=== PATIENT | male | born 1945 | race Caucasian/White ===

== ENCOUNTER → 2016-08-15 | Outpatient (CLI) | payer OTHER, MEDICARE ==
[~2016-08-15] MED LIST: AMLO-110 PO; ASPI81TA28 PO; EMPA1TAB3 PO; FINA5TAB PO; LISI40TA PO; METF1TAB53 PO; SITA100T3 PO
[2016-08-15 09:42] LABS: HEMATOCRIT 44.9 % (42-52); MEAN CELL VOLUME 82.5 fL (80-100); MEAN CORPUSCULAR HEMOGLOBIN 28.1 pg (25-34); MEAN CORPUSCULAR HGB CONC 34.1 g/dl (32-36); MEAN PLATELET VOLUME 11.3 fL (7.4-10.4); PLATELET COUNT 145 K/uL (130-400); RED BLOOD COUNT 5.44 M/uL (4.7-6.1); WHITE BLOOD COUNT 9.73 K/uL (4.8-10.8)
[2016-08-15 09:58] LABS: BLOOD UREA NITROGEN 15 mg/dl (7-18); BUN/CREATININE RATIO 13.8 (10-20); CALCIUM 8.6 mg/dl (8.5-10.1); CARBON DIOXIDE 23 mmol/L (21-32); CHLORIDE 108 mmol/L (98-107); GLUCOSE 181 mg/dl (70-99); HDL CHOLESTEROL 40 mg/dl; POTASSIUM 4.1 mmol/L (3.5-5.1); SODIUM 141 mmol/L (136-145)
[2016-08-15 10:02] LABS: ALB/GLOB RATIO 1.2 (0.9-2); ALKALINE PHOSPHATASE 86 U/L (45-117); ALT/SGPT 29 U/L (12-78); AST/SGOT 15 U/L (15-37); CHOLESTEROL 106 mg/dl (0-200); CHOLESTEROL/HDL RATIO 2.7; LDL CHOLESTEROL CALCULATED 38 mg/dl; TRIGLYCERIDES 142 mg/dl (0-150); VERY LOW DENSITY LIPOPROT CALC 28 mg/dl
[2016-08-15 10:07] LABS: ESTIMATED AVERAGE GLUCOSE 186 mg/dl; HA1C FLAG Normal (Normal)
== END | disposition home or self-care (01) ==
LOC: C.LAB 08:25
PROVIDERS: ATTEND Family Medicine
DX: E11.9 Type 2 diabetes mellitus without complications (principal); N40.1 Benign prostatic hyperplasia with lower urinary tract symptoms

== ENCOUNTER → 2016-09-21 | Outpatient (CLI) | payer OTHER, MEDICARE | END | disposition home or self-care (01) | LOC: C.LABSPEC 16:52 | PROVIDERS: ATTEND Podiatrist Foot & Ankle Surgery | DX: L97.509 Non-pressure chronic ulcer of other part of unspecified foot with unspecified severity (principal) ==

== ENCOUNTER → 2016-12-17 | Outpatient (CLI) | payer OTHER, MEDICARE ==
[2016-12-17 17:15] LABS: BASO % 0.2 %; BASO ABS # 0.03 K/uL (0-0.2); COMPLETE YES; EOS % 1.3 %; HEMATOCRIT 46.3 % (42-52); IG% 0.4 %; LYMPH % 11.6 %; MEAN CELL VOLUME 83.3 fL (80-100); MEAN CORPUSCULAR HEMOGLOBIN 28.6 pg (25-34); MEAN CORPUSCULAR HGB CONC 34.3 g/dl (32-36); MEAN PLATELET VOLUME 11.2 fL (7.4-10.4); MONO % 12.3 %; NEUT % 74.2 %; PLATELET COUNT 141 K/uL (130-400); RED BLOOD COUNT 5.56 M/uL (4.7-6.1); WHITE BLOOD COUNT 12.03 K/uL (4.8-10.8)
[2016-12-17 17:42] LABS: ALT/SGPT 29 U/L (12-78); AST/SGOT 15 U/L (15-37); BLOOD UREA NITROGEN 19 mg/dl (7-18); BUN/CREATININE RATIO 17.3 (10-20); CALCIUM 8.7 mg/dl (8.5-10.1); CARBON DIOXIDE 22 mmol/L (21-32); CHLORIDE 109 mmol/L (98-107); GLUCOSE 140 mg/dl (70-99); POTASSIUM 3.7 mmol/L (3.5-5.1); SODIUM 142 mmol/L (136-145); URIC ACID 6.9 mg/dl (2.6-7.2)
[2016-12-17 17:49] LABS: ALB/GLOB RATIO 1.3 (0.9-2); ALKALINE PHOSPHATASE 92 U/L (45-117); CHOLESTEROL 114 mg/dl (0-200); CHOLESTEROL/HDL RATIO 3.5; HDL CHOLESTEROL 33 mg/dl; LDL CHOLESTEROL CALCULATED 35 mg/dl; PHOSPHORUS 3.2 mg/dl (2.5-4.9); TRIGLYCERIDES 232 mg/dl (0-150); VERY LOW DENSITY LIPOPROT CALC 46 mg/dl
[2016-12-18 05:46] LABS: ESTIMATED AVERAGE GLUCOSE 169 mg/dl; HA1C FLAG Normal (Normal)
[2016-12-19 10:05] LABS: C-REACTIVE PROT HIGHSEN 3.2 MG/L
--- NOTE | 2016-12-21 12:03 | CODING QUERY MEDICAL NECESSITY ---
SUPPORTING DIAGNOSIS NEEDED Dr. Farrar, A supporting diagnosis is required for the test/procedure performed on this patient in order for us to be reimbursed by the patient's insurance. Please provide a supporting diagnosis for the following test/procedure listed below next to the test name along with your signature. *If there is no additional diagnosis for this patient that would support the following test/procedure please document that below next to the test/procedure. Test(s)/Procedure(s) that require a supporting diagnosis: * ([id number]) VITAMIN D ASSAY DIAGNOSIS: * ([id number]) B12 VITAMIN LEVEL DIAGNOSIS: *([id number]) C-REACTIVE PROTEIN DIAGNOSIS: *[id number] PSA DIAGNOSIS: DATE OF SERVICE: 12/17/16 Provider Signature: Date: Thank you Pietro Cee [facility] Information Management Once completed, please kindly fax back to [phone] For questions please call [phone]
== END | disposition home or self-care (01) ==
LOC: C.LAB 16:16
PROVIDERS: ATTEND Family Medicine
DX: E11.9 Type 2 diabetes mellitus without complications (principal); E55.9 Vitamin D deficiency, unspecified; D51.9 Vitamin B12 deficiency anemia, unspecified; R53.83 Other fatigue; I10 Essential (primary) hypertension; N40.0 Benign prostatic hyperplasia without lower urinary tract symptoms

== ENCOUNTER → 2017-03-18 | Outpatient (CLI) | payer OTHER, MEDICARE ==
[2017-03-18 18:07] LABS: BASO % 0.3 %; BASO ABS # 0.03 K/uL (0-0.2); COMPLETE YES; EOS % 1.4 %; HEMATOCRIT 45.1 % (42-52); IG% 0.4 %; LYMPH % 10.3 %; LYMPH ABS # 1.21 K/uL (1.2-3.4); MEAN CELL VOLUME 82.3 fL (80-100); MEAN CORPUSCULAR HGB CONC 35.3 g/dl (32-36); MEAN PLATELET VOLUME 10.8 fL (7.4-10.4); MONO % 13.1 %; NEUT % 74.5 %; PLATELET COUNT 133 K/uL (130-400); RED BLOOD COUNT 5.48 M/uL (4.7-6.1); WHITE BLOOD COUNT 11.79 K/uL (4.8-10.8)
[2017-03-18 18:27] LABS: ALT/SGPT 28 U/L (12-78); AST/SGOT 16 U/L (15-37); BLOOD UREA NITROGEN 16 mg/dl (7-18); BUN/CREATININE RATIO 14.1 (10-20); CALCIUM 8.8 mg/dl (8.5-10.1); CARBON DIOXIDE 24 mmol/L (21-32); CHLORIDE 109 mmol/L (98-107); CHOLESTEROL 118 mg/dl (0-200); GLUCOSE 128 mg/dl (70-99); POTASSIUM 3.9 mmol/L (3.5-5.1); SODIUM 140 mmol/L (136-145); TRIGLYCERIDES 284 mg/dl (0-150); URIC ACID 6.9 mg/dl (2.6-7.2); VERY LOW DENSITY LIPOPROT CALC 57 mg/dl
[2017-03-18 18:37] LABS: ALB/GLOB RATIO 1.3 (0.9-2); ALKALINE PHOSPHATASE 98 U/L (45-117); CHOLESTEROL/HDL RATIO 3.5; HDL CHOLESTEROL 34 mg/dl; LDL CHOLESTEROL CALCULATED 27 mg/dl; TOTAL IRON BINDING CAPACITY 334 mcg/dl (250-450)
[2017-03-19 07:05] LABS: ESTIMATED AVERAGE GLUCOSE 171 mg/dl; HA1C FLAG Normal (Normal)
== END | disposition home or self-care (01) ==
LOC: C.LAB 17:12
PROVIDERS: ATTEND Family Medicine
DX: R73.09 Other abnormal glucose (principal); E55.9 Vitamin D deficiency, unspecified; D51.9 Vitamin B12 deficiency anemia, unspecified; E78.9 Disorder of lipoprotein metabolism, unspecified; R53.83 Other fatigue

== ENCOUNTER → 2017-06-26 | Outpatient (CLI) | payer OTHER, MEDICARE ==
[2017-06-26 17:24] LABS: BASO % 0.3 %; BASO ABS # 0.03 K/uL (0-0.2); COMPLETE YES; EOS % 1.9 %; HEMATOCRIT 45.8 % (42-52); IG% 0.4 %; LYMPH % 13.5 %; LYMPH ABS # 1.34 K/uL (1.2-3.4); MEAN CELL VOLUME 83.6 fL (80-100); MEAN CORPUSCULAR HEMOGLOBIN 28.5 pg (25-34); MEAN CORPUSCULAR HGB CONC 34.1 g/dl (32-36); MEAN PLATELET VOLUME 11.2 fL (7.4-10.4); MONO % 11.4 %; NEUT % 72.5 %; PLATELET COUNT 146 K/uL (130-400); RED BLOOD COUNT 5.48 M/uL (4.7-6.1); WHITE BLOOD COUNT 9.91 K/uL (4.8-10.8)
[2017-06-26 17:44] LABS: ALT/SGPT 30 U/L (12-78); BLOOD UREA NITROGEN 19 mg/dl (7-18); BUN/CREATININE RATIO 19.4 (10-20); CALCIUM 8.8 mg/dl (8.5-10.1); CARBON DIOXIDE 23 mmol/L (21-32); CHLORIDE 106 mmol/L (98-107); CHOLESTEROL 115 mg/dl (0-200); CREATININE 0.99 mg/dl (0.60-1.40); GLUCOSE 92 mg/dl (70-99); SODIUM 138 mmol/L (136-145); URIC ACID 7.4 mg/dl (2.6-7.2)
[2017-06-26 17:54] LABS: ALB/GLOB RATIO 1.1 (0.9-2); ALKALINE PHOSPHATASE 86 U/L (45-117); AST/SGOT 19 U/L (15-37); CHOLESTEROL/HDL RATIO 3.5; HDL CHOLESTEROL 33 mg/dl; LDL CHOLESTEROL CALCULATED 33 mg/dl; TOTAL IRON BINDING CAPACITY 311 mcg/dl (250-450); TRIGLYCERIDES 244 mg/dl (0-150); VERY LOW DENSITY LIPOPROT CALC 49 mg/dl
[2017-06-27 05:28] LABS: ESTIMATED AVERAGE GLUCOSE 128 mg/dl; HA1C FLAG Normal (Normal)
== END | disposition home or self-care (01) ==
LOC: C.LAB 16:33
PROVIDERS: ATTEND Family Medicine
DX: R73.09 Other abnormal glucose (principal); E55.9 Vitamin D deficiency, unspecified; D51.9 Vitamin B12 deficiency anemia, unspecified; E78.9 Disorder of lipoprotein metabolism, unspecified; R53.83 Other fatigue

== ENCOUNTER → 2017-11-25 | Outpatient (CLI) | payer OTHER, MEDICARE ==
[2017-11-25 17:09] LABS: BASO % 0.5 %; BASO ABS # 0.05 K/uL (0-0.2); EOS % 1.2 %; EOS ABS # 0.12 K/uL (0-0.5); HEMOGLOBIN 15.3 g/dL (14.0-18.0); IG# 0.05 K/uL (0.00-0.02); LYMPH % 11.4 %; LYMPH ABS # 1.13 K/uL (1.2-3.4); MEAN CELL VOLUME 81.8 fL (80-100); MEAN CORPUSCULAR HEMOGLOBIN 28.4 pg (25-34); MEAN CORPUSCULAR HGB CONC 34.8 g/dl (32-36); MEAN PLATELET VOLUME 10.5 fL (7.4-10.4); MONO % 11.7 %; MONO ABS # 1.16 K/uL (0.11-0.59); NEUT % 74.7 %; NEUT ABS # 7.42 K/uL (1.4-6.5); PLATELET COUNT 135 K/uL (130-400); RED CELL DISTRIBUTION WIDTH CV 13.5 % (11.5-14.5); RED CELL DISTRIBUTION WIDTH SD 40.5 fL (36.4-46.3); WHITE BLOOD COUNT 9.93 K/uL (4.8-10.8)
[2017-11-25 17:34] LABS: ALBUMIN 3.9 gm/dl (3.4-5.0); ALT/SGPT 32 U/L (12-78); AST/SGOT 17 U/L (15-37); BLOOD UREA NITROGEN 20 mg/dl (7-18); CALCIUM 8.6 mg/dl (8.5-10.1); CARBON DIOXIDE 24 mmol/L (21-32); CHOLESTEROL 119 mg/dl (0-200); CREATININE 1.13 mg/dl (0.60-1.40); GLUCOSE 122 mg/dl (70-99); POTASSIUM 3.7 mmol/L (3.5-5.1); SODIUM 141 mmol/L (136-145); URIC ACID 7.6 mg/dl (2.6-7.2)
[2017-11-25 17:43] LABS: ALKALINE PHOSPHATASE 92 U/L (45-117); LDL CHOLESTEROL CALCULATED 40 mg/dl; TOTAL PROTEIN 7.4 gm/dl (6.4-8.2); TRANSFERRIN 244 mg/dl (200-360)
== END | disposition home or self-care (01) ==
LOC: C.LAB 16:34
PROVIDERS: ATTEND Family Medicine
DX: R73.09 Other abnormal glucose (principal); E55.9 Vitamin D deficiency, unspecified; D51.9 Vitamin B12 deficiency anemia, unspecified; E78.9 Disorder of lipoprotein metabolism, unspecified; R53.83 Other fatigue

== ENCOUNTER 2024-12-01 05:55 | Inpatient (IN) ==
--- NOTE | 2024-11-06 12:39 | Anesthesiology Consultation ---
Date of Service November 06, 2024 History Surgery Operation Date: 12/01/24 07:15 Proposed Procedures p L4-L5 Decompression and Transforaminal Lumbar Interbody Fusion, with Spinal Cord Monitoring and CT Navigation - Carlos Cespedes MD Height/Weight Height: 5 ft 11 in Weight: 86.183 kg Allergies Allergy/AdvReac Type Severity Reaction Status Date / Time No Known Drug Allergies Allergy Unknown . Verified 11/03/24 11:46 onion AdvReac Mild DOESN'T Verified 11/03/24 11:46 EAT RAW ONIONS - STOMACH UPSET Medications Home Medications Medication Instructions Recorded Confirmed Last Taken cyanocobalamin (vitamin B-12) 1,000 mcg PO QPM 08/30/20 11/03/24 09/06/23 1,000 mcg tablet (Vitamin B-12) metoprolol succinate 25 mg 25 mg PO QAM #90 tabs 11/26/23 11/03/24 Unknown tablet,extended release 24 hr cholecalciferol (vitamin D3) 25 25 mcg PO DAILY 12/30/23 11/03/24 Unknown mcg (1,000 unit) capsule zinc 50 mg PO DAILY 12/30/23 11/03/24 Unknown allopurinol 100 mg tablet 200 mg (2 x 100 mg) PO QAM #180 04/10/24 11/03/24 Unknown tabs ammonium lactate 12 % topical cream 1 applic topical BID PRN Rash 07/02/24 11/03/24 Unknown blood sugar diagnostic (Accu-Chek #100 ea 07/14/24 10/15/24 Unknown Guide test strips) tirzepatide 15 mg/0.5 mL 15 mg (0.5 mL) subcut .weekly #2 mL 08/24/24 11/03/24 Unknown subcutaneous pen injector atorvastatin 10 mg tablet 10 mg PO QAM #90 tabs 09/14/24 11/03/24 Unknown nystatin 500,000 unit tablet 500,000 unit PO TID 09/14/24 11/03/24 Unknown hydrochlorothiazide 25 mg tablet 25 mg PO 3XWK #36 tabs 10/21/24 11/03/24 Unknown fluconazole 200 mg tablet 200 mg PO QAM 11/03/24 11/03/24 Unknown metformin 1,000 mg tablet 1,000 mg PO QAM 11/03/24 11/03/24 Unknown pantoprazole 40 mg tablet,delayed 40 mg PO QAM 11/03/24 11/03/24 Unknown release tamsulosin 0.4 mg capsule 0.4 mg PO QAM 11/03/24 11/03/24 Unknown Past Medical History Medical History Acid reflux 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 s/p bladder lesion sx, pt reports is under control now Chronic polyneuropathy Diabetes mellitus, type 2 Dyslipidemia Enlarged prostate GERD (gastroesophageal reflux disease) Hard of hearing History of COVID-19 2022 History of diabetic ulcer of foot Noted to right heel- has heeled per PCP note and per pt History of gout History of kidney stones History of recurrent UTIs none at present per pt Lumbar stenosis Meningioma just monitoring Premature supraventricular beat On beta ellen; no associated palpitations per records Tinnitus Past Family History Family History Father Family history of diabetes mellitus Myocardial infarction Brother Family history of diabetes mellitus Grandmother (Paternal) Family history of diabetes mellitus Other No family history of adverse response to anesthesia Denies family history of Ovarian cancer Prostate cancer Breast cancer Lung cancer Colorectal cancer Past Surgical History Surgical History H/O cystoscopy History of arthroscopy of left knee History of arthroscopy of right knee X3 History of bladder surgery lesion removed History of colonoscopy History of elbow surgery left bone spur History of prostate biopsy History of tonsillectomy and adenoidectomy History of tooth extraction History of total right knee replacement S/P cataract extraction left/right S/P rotator cuff repair left Social History Smoking Status: Never smoker Do You Dip or Chew Tobacco: No Hx Alcohol Use: No Hx Substance Use: No substance use type: does not use
--- NOTE | 2024-11-06 12:51 | PAT Medication Instructions ---
Medication Instructions Date of Service November 06, 2024 Home Medications Medication Instructions Recorded metoprolol succinate 25 mg 25 mg PO QAM #90 tabs 11/26/23 tablet,extended release 24 hr allopurinol 100 mg tablet 200 mg (2 x 100 mg) PO QAM #180 04/10/24 tabs blood sugar diagnostic (Accu-Chek #100 ea 07/14/24 Guide test strips) tirzepatide 15 mg/0.5 mL 15 mg (0.5 mL) subcut .weekly #2 mL 08/24/24 subcutaneous pen injector atorvastatin 10 mg tablet 10 mg PO QAM #90 tabs 09/14/24 hydrochlorothiazide 25 mg tablet 25 mg PO 3XWK #36 tabs 10/21/24 cyanocobalamin (vitamin B-12) 1,000 mcg tablet (Vitamin B-12) 1,000 mcg PO QPM metoprolol succinate 25 mg tablet,extended release 24 hr 25 mg PO QAM cholecalciferol (vitamin D3) 25 mcg (1,000 unit) capsule 25 mcg PO DAILY zinc 50 mg PO DAILY allopurinol 100 mg tablet 200 mg (2 x 100 mg) PO QAM ammonium lactate 12 % topical cream 1 applic topical BID PRN tirzepatide 15 mg/0.5 mL subcutaneous pen injector 15 mg (0.5 mL) subcut .weekly atorvastatin 10 mg tablet 10 mg PO QAM nystatin 500,000 unit tablet 500,000 unit PO TID hydrochlorothiazide 25 mg tablet 25 mg PO 3XWK fluconazole 200 mg tablet 200 mg PO QAM metformin 1,000 mg tablet 1,000 mg PO QAM pantoprazole 40 mg tablet,delayed release 40 mg PO QAM tamsulosin 0.4 mg capsule 0.4 mg PO QAM STOP 7 days before surgery tirzepatide 15 mg/0.5 mL subcutaneous pen injector 15 mg (0.5 mL) subcut .weekly Continue as directed nystatin 500,000 unit tablet 500,000 unit PO TID STOP taking 24 hours before surgery ammonium lactate 12 % topical cream 1 applic topical BID PRN DO NOT take the morning of surgery cholecalciferol (vitamin D3) 25 mcg (1,000 unit) capsule 25 mcg PO DAILY zinc 50 mg PO DAILY hydrochlorothiazide 25 mg tablet 25 mg PO 3XWK metformin 1,000 mg tablet 1,000 mg PO QAM Take morning of surgery With a small sip of water, OTHERWISE NOTHING TO EAT OR DRINK AFTER MIDNIGHT: metoprolol succinate 25 mg tablet,extended release 24 hr 25 mg PO QAM allopurinol 100 mg tablet 200 mg (2 x 100 mg) PO QAM atorvastatin 10 mg tablet 10 mg PO QAM fluconazole 200 mg tablet 200 mg PO QAM pantoprazole 40 mg tablet,delayed release 40 mg PO QAM tamsulosin 0.4 mg capsule 0.4 mg PO QAM Take evening before surgery cyanocobalamin (vitamin B-12) 1,000 mcg tablet (Vitamin B-12) 1,000 mcg PO QPM Other Notes If you have any questions please call us at [phone] or [phone] or [phone] or [phone]
--- NOTE | 2024-11-13 13:05 | Anesthesiology Consultation ---
Date of Service November 13, 2024 Assessment & Plan (1) Encounter for pre-operative examination: Plan - check BSG am DOS. - Case discussed in detail with Dr. Moreno who advised patient is acceptable to proceed from anesthesia standpoint, leukocytosis with left shift is to surgeon's discretion as patient denies recent illness. Choco with surgeon's office made aware. - tirzepatide instructions: Patient informed at PAT visit to stop 7 days prior to surgery- voiced understanding. Patient advised to check with prescriber to see if alternative diabetic management changes recommended while holding tirzepatide- if so, patient to call back to [facility] to update chart and discuss if any further preop medication instructions needed. Chart Review Chart Review: Acceptable Risk for Surgery and Patient seen in Pre Admission Testing Teaching & Discussion Pre-Anesthesia Teaching/Discussion Notes: Instructed NPO after midnight before surgery, except medications with 15 cc of water. Medication instructions provided according to the PAT guidelines. History Surgery Operation Date: 12/01/24 07:15 Proposed Procedures p L4-L5 Decompression and Transforaminal Lumbar Interbody Fusion, with Spinal Cord Monitoring and CT Navigation - Carlos Cespedes MD Height/Weight Height: 5 ft 11 in Weight: 92.6 kg Allergies Allergy/AdvReac Type Severity Reaction Status Date / Time No Known Drug Allergies Allergy Unknown . Verified 11/13/24 09:41 onion AdvReac Mild DOESN'T Verified 11/13/24 09:41 EAT RAW ONIONS - STOMACH UPSET Medications Home Medications Medication Instructions Recorded Confirmed Last Taken cyanocobalamin (vitamin B-12) 1,000 mcg PO QPM 08/30/20 11/03/24 09/06/23 1,000 mcg tablet (Vitamin B-12) metoprolol succinate 25 mg 25 mg PO QAM #90 tabs 11/26/23 11/03/24 Unknown tablet,extended release 24 hr cholecalciferol (vitamin D3) 25 25 mcg PO DAILY 12/30/23 11/03/24 Unknown mcg (1,000 unit) capsule zinc 50 mg PO DAILY 12/30/23 11/03/24 Unknown allopurinol 100 mg tablet 200 mg (2 x 100 mg) PO QAM #180 04/10/24 11/03/24 Unknown tabs ammonium lactate 12 % topical cream 1 applic topical BID PRN Rash 07/02/24 11/03/24 Unknown blood sugar diagnostic (Accu-Chek #100 ea 07/14/24 10/15/24 Unknown Guide test strips) tirzepatide 15 mg/0.5 mL 15 mg (0.5 mL) subcut .weekly #2 mL 08/24/24 11/03/24 Unknown subcutaneous pen injector atorvastatin 10 mg tablet 10 mg PO QAM #90 tabs 09/14/24 11/03/24 Unknown nystatin 500,000 unit tablet 500,000 unit PO TID 09/14/24 11/03/24 Unknown hydrochlorothiazide 25 mg tablet 25 mg PO 3XWK #36 tabs 10/21/24 11/03/24 Unknown fluconazole 200 mg tablet 200 mg PO QAM 11/03/24 11/03/24 Unknown metformin 1,000 mg tablet 1,000 mg PO QAM 11/03/24 11/03/24 Unknown pantoprazole 40 mg tablet,delayed 40 mg PO QAM 11/03/24 11/03/24 Unknown release tamsulosin 0.4 mg capsule 0.4 mg PO QAM 11/03/24 11/03/24 Unknown Past Medical History Medical History (Updated 11/13/24 @ 15:28 by Kirsten Jasmine PA-C) Acid reflux 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 s/p bladder lesion sx, pt reports is under control now Chronic polyneuropathy Diabetes mellitus, type 2 Dyslipidemia Enlarged prostate GERD (gastroesophageal reflux disease) Hard of hearing History of COVID-19 2022 History of diabetic ulcer of foot Noted to right heel-healed per pt History of gout History of kidney stones History of recurrent UTIs none at present per pt Lumbar stenosis Meningioma just monitoring Premature supraventricular beat On beta ellen; no associated palpitations per records Tinnitus Patient denies h/o stroke, seizures, heart attack, heart failure, blood clots/DVTs or blood transfusions. Exercise / Class Metabolic Activity II 4-5 Yardwork/Stairs/Walk up hill (denies chest discomfort or shortness of breath with one flight of stairs) Past Family History Family History Father Family history of diabetes mellitus Myocardial infarction Brother Family history of diabetes mellitus Grandmother (Paternal) Family history of diabetes mellitus Other No family history of adverse response to anesthesia Denies family history of Ovarian cancer Prostate cancer Breast cancer Lung cancer Colorectal cancer Past Surgical History Surgical History H/O cystoscopy History of arthroscopy of left knee History of arthroscopy of right knee X3 History of bladder surgery lesion removed History of colonoscopy History of elbow surgery left bone spur History of prostate biopsy History of tonsillectomy and adenoidectomy History of tooth extraction History of total right knee replacement S/P cataract extraction left/right S/P rotator cuff repair left Past Anesthesia History No Hx of Anesthesia Complications and No Family Hx of Anesthesia Complications History of PONV No Hx of PONV and No Hx of Motion Sickness Social History Smoking Status: Never smoker Do You Dip or Chew Tobacco: No Hx Alcohol Use: No Hx Substance Use: No substance use type: does not use Review of Systems Patient denies chest pain, shortness of breath, dyspnea on exertion, snoring, witnessed apneas, fever, chills, cough, wheezing, or palpitations. Physical Exam Vital Signs Vitals BP 146/86 P 87 TEMP 98.7 SP02 96% on RA RESP 17 Physical Patient resting comfortably in chair in no acute distress, alert and oriented, responding appropriately throughout visit Full cervical extension range of motion without pain TMD 3.5 finger breadths Mallampati Score 2 Dentition: several crowns, denies chipped or loose teeth, caps, implants or bridges Lungs: normal respiratory effort. Good air movement, clear throughout to auscultation, no adventitious breath sounds Cardiac: regular rate and rhythm, no murmurs noted Carotid arteries: negative bruit bilat Lab Results Anesthesia Preop Results Results Anesthesia Widget: WBC 12.43 K/ul (4.8-10.8) H 11/13/24 Hgb 13.0 g/dl (14.0-18.0) L 11/13/24 Hct 39.1 % (42.0-52.0) L 11/13/24 Plt 166 K/uL (130-400) 11/13/24 Na 138 mmol/L (136-145) 10/13/24 K 3.9 mmol/L (3.5-5.1) 10/13/24 Cl 106 mmol/L (98-107) 10/13/24 CO2 22 mmol/L (21-32) 10/13/24 BUN 26 mg/dl (6-23) H 10/13/24 Creat 1.36 mg/dl (0.6-1.4) 10/13/24 Glucose Level 106 mg/dl (70-99(Fasting)) H 10/13/24 PT 10.8 Seconds (9.0-12.0) 11/13/24 PTT 31 Seconds (21-31) 11/13/24 INR 1.0 (0.9-1.1) 11/13/24 HA1c 6.3 % (4.5-5.6) H 10/13/24 Blood Type O Positive 11/13/24 Antibody Screen NEGATIVE 11/13/24 Testing Electrocardiogram Date: 11/13/24 NSR, rate 87 bpm Chest X-Ray Date: 11/13/24 No acute findings. Stress Test Date: 11/04/20 MPHR 105% Negative for inducible ischemia EF 55-60% Mild cLVH No regional wall motion abnormality Grade I diastolic dysfunction No significant valvular pathology Other Testing Brain MRI 07/02/24 1.9 x 0.7 x 1.2 cm enhancing left parafalcine lesion which corresponds to the finding on noncontrast MRI performed earlier today. This is suggestive of a meningioma. A follow-up MRI in 6 months to ensure stability is recommended. No additional intracranial masses.
[2024-12-01] MEDS: LR 60ML/HR IV SCH (06:30)
[2024-12-01] MEDS: GABAPENTIN 300 MG CAP PO SCH (06:31)
[2024-12-01] MEDS: ACETAMINOPHEN 500 MG TAB PO SCH (06:31)
[2024-12-01] MEDS ORDERED: fentaNYL citrate PF 100 MCG/2 ML VIAL ONE ×4 (06:37→12:03)
[2024-12-01] MEDS ORDERED: ROCURONIUM BROMIDE 10 MG/ML 5 ML VIAL IV ONE (06:37)
[2024-12-01] MEDS ORDERED: PROPOFOL IV EMULSION 10 MG/ML 20 ML VIAL IV ONE ×3 (06:37→10:13)
[2024-12-01] MEDS ORDERED: DEXAMETHASONE SOD INJ 4 MG/ML VIAL ONE (06:37)
[2024-12-01] MEDS ORDERED: MIDAZOLAM HCL 1 MG/ML 2ML VIAL ONE (06:37)
[2024-12-01] MEDS ORDERED: ONDANSETRON INJ 2 MG/ML 2 ML VIAL ONE (06:37)
[2024-12-01] MEDS ORDERED: GLYCOPYRROLATE 0.2 MG/ML VIAL ONE (06:37)
[2024-12-01] MEDS ORDERED: LIDOCAINE 2% 2 ML VIAL/AMP(20MG/ML) INFIL ONE (06:37)
[2024-12-01] MEDS ORDERED: PROPOFOL IV EMULSION 10 MG/ML 100 ML VIAL IV ONE ×2 (06:38→12:34)
[2024-12-01] MEDS ORDERED: SUGAMMADEX SODIUM 200 MG/2 ML VIAL IV ONE (06:41)
[2024-12-01] MEDS: LR 15ML/HR IV SCH (06:46)
[2024-12-01] MEDS ORDERED: PHENYLEPHRINE HCL 25 MG/250 ML NSS IV ONE (06:49)
[2024-12-01] MEDS ORDERED: KETAMINE HCL 10MG/ML SYR ONE (06:49)
[2024-12-01] MEDS ORDERED: ONDANSETRON INJ 2 MG/ML 2 ML VIAL IV PRN ×2 (07:28→12:46)
[2024-12-01] MEDS ORDERED: fentaNYL citrate PF 100 MCG/2 ML VIAL IV PRN (07:28)
[2024-12-01] MEDS ORDERED: ePHEDrine sulfate 50 MG/ML AMP IV PRN (07:28)
[2024-12-01] MEDS ORDERED: HYDROmorphone INJ 1 MG/ML SYRINGE IV PRN ×2 (07:28→13:12)
[2024-12-01] MEDS ORDERED: ATROPINE SULFATE 0.1 MG/ML 10ML SYR IV PRN (07:28)
--- NOTE | 2024-12-01 07:34 | History & Physical Bridge Note ---
Date of Service December 01, 2024 L4-5 lateral interbody fusion/cage insertion, posterior instrumentation History & Physical Bridge Note I have examined the patient, reviewed the History & Physical and in the interval since the performance of the History & Physical I have noted the following changes of clinical significance: no changes noted
[2024-12-01] MEDS: ceFAZolin 2000MG 2,000 MG/15 ML SYR IV SCH ×2 (08:25→17:42)
[2024-12-01] MEDS ORDERED: ceFAZolin 330 MG/ML 1 GM VIAL ONE ×2 (11:49)
[2024-12-01] MEDS: BUPIVACAINE/EPINEPHRINE 0.5% MPF 1:200,000 30 ML VIAL ONE (12:25)
[2024-12-01] MEDS: FLOSEAL HEMOSTATIC MATRIX 10ML TOP ONE (12:26)
[2024-12-01] MEDS: THROMBIN 5000 UNITS KIT ONE (12:28)
[2024-12-01] MEDS: VANCOMYCIN HCL 1000MG/20ML VIAL ONE (12:29)
[2024-12-01] MEDS: GELATIN SPONGE 12-7MM ONE (12:29)
[2024-12-01] MEDS: ceFAZolin 2000MG 2,000 MG/15 ML SYR IV ONE (12:30)
--- NOTE | 2024-12-01 12:37 | Post Operative Brief Note ---
PG Immediate Post Op with CF Date of Surgery December 01, 2024 Pre & Post Diagnosis Operation Date: 12/01/24 07:30 Pre-Op Diagnosis: (1) Lumbar stenosis with neurogenic claudication (2) Degenerative spondylolisthesis (3) Low back pain radiating to both legs (4) Back pain Post-Op Diagnosis: (1) Lumbar stenosis with neurogenic claudication (2) Degenerative spondylolisthesis (3) Low back pain radiating to both legs (4) Back pain I identified the patient and participated in the time-out.: Yes Procedure Operation Date: 12/01/24 07:30 Actual Procedures p L4-L5 Lateral Lumbar Interbody Fusion, Posterior instrumenation, Spinal Cord Monitoring and CT Navigation(Not Applicable) - Carlos Cespedes MD Surgeon Carlos Cespedes MD Switch Repairer none Estimated Blood Loss 30 Findings Consistent with Post-Op Diagnosis Specimens Specimen Description: No specimen per surgeon Drains Adam Catheter (16Fr adam inserted by Ken prior to procedure without difficulty, clear yellow urine noted. To be removed at end of procedure.)
--- NOTE | 2024-12-01 12:42 | Fluoroscopy Report ---
FL lumbar spine 2-3V CLINICAL HISTORY: L4-L5 Decompression/fusion COMPARISON STUDY: None FLUOROSCOPY TIME: 1 minute 36 seconds FLUOROSCOPY IMAGES: 209 FINDINGS: Fluoroscopy was provided for lower lumbar surgery. IMPRESSION: Intraoperative fluoroscopy. ACT 112: Negative or not required by law. Electronically signed by: Robel Chao M.D. 12/01/2024 12:41 PM
[2024-12-01] MEDS ORDERED: ACETAMINOPHEN 1,000 MG/100 ML VIAL IV PRN (12:46)
[2024-12-01] MEDS ORDERED: NALOXONE HCL 0.4 MG/1 ML VIAL/CARP IV PRN (12:46)
[2024-12-01] MEDS ORDERED: HYDROmorphone INJ 0.5 MG/0.5 ML SYR IV PRN (12:46)
[2024-12-01] MEDS ORDERED: bisacodyL 10 MG SUPP PR PRN (12:46)
[2024-12-01] MEDS ORDERED: LORazepam 0.5 MG TAB PO PRN (12:46)
[2024-12-01] MEDS ORDERED: MAGNESIUM HYDROXIDE SUSP 30 ML UDC PO PRN (12:46)
[2024-12-01] MEDS ORDERED: oxyCODONE/ACETAMINOPHEN 5mg/325mg TAB PO PRN (12:46)
[2024-12-01] MEDS ORDERED: SOD PHOSPHATE/SOD BIPHOSPHATE ENEMA 132 ML BTL PR PRN (12:46)
[2024-12-01] MEDS ORDERED: ONDANSETRON 4 MG OD TAB PO PRN (12:46)
[2024-12-01] MEDS ORDERED: METOCLOPRAMIDE HCL INJ 5 MG/ML 2 ML VIAL IV PRN (12:46)
[2024-12-01] MEDS ORDERED: PHARMACY GLYCEMIC MGMT CONSULT PRN (12:46)
[2024-12-01] MEDS ORDERED: FAMOTIDINE 20 MG TAB PO PRN (12:46)
[2024-12-01] MEDS ORDERED: DO NOT ADMINISTER PNEUMOCOCCAL VACCINE PRN (12:46)
[2024-12-01] MEDS ORDERED: DO NOT ADMINISTER FLU VACCINE PRN (12:46)
[2024-12-01] MEDS ORDERED: LORazepam 2 MG/1 ML VIAL IV PRN (12:46)
[2024-12-01] MEDS ORDERED: PROMETHAZINE 12.5 MG/50.5 ML BAG IV PRN (12:46)
[2024-12-01] MEDS ORDERED: ALUMINUM/MAGNESIUM SUSP 30 ML UDC PO PRN (12:46)
[2024-12-01] MEDS ORDERED: hydrOXYzine HCl 25 MG TAB PO PRN (12:46)
[2024-12-01] MEDS ORDERED: diphenhydrAMINE Capsule 25 MG CAP PO PRN (12:46)
[2024-12-01] MEDS ORDERED: TIRZEPATIDE 15 MG/0.5 ML SQ SCH (13:00)
--- NOTE | 2024-12-01 13:29 | Pharmacy Report ---
Pharmacy Glycemic Short Note 2 - Date of Service December 01, 2024 - Glycemic Short BSG Results (Last 24 hours): 12/01/24 12/01/24 06:12 13:15 POC Glucose 145 H 238 H OUTPATIENT ANTIDIABETIC REGIMEN: * metformin 1000mg po bid * tirzepatide 15mg SQ weekly HbA1c: 6.3% on 10-13-24 ASSESSMENT: * Robel is a 79 year old male admitted today for an L4-L5 lumbar fusion. Pharmacy has been consulted postop for glycemic management. * BSG preop was 145mg/dL and post op was 238mg/dL. He did receive 8mg iv dexamethasone x 1 preop. (no additional steroids ordered currently). * Lantus 15 units SQ x 1 was ordered and he was started on a weight based bolus insulin regimen with a stress of 2 PLAN FOR INPATIENT GLYCEMIC CONTROL: * Hold outpatient oral diabetes medications * Basal insulin * Lantus 15 units SQ x 1. Further dosing to be determined by addition BSG readings * Bolus insulin * NovoLog per scale ACHS or Q6hrs while NPO * Goal Range: Low 110 mg/dL - High 140 mg/dL * Correction Factor: 25 mg/dL/unit * Nutritional / Prandial insulin per carb ratio of 1 unit per 9 grams CHO consumed
[2024-12-01] MEDS ORDERED: GLUCOSE 40% GEL 15 GM TUBE PO PRN (13:30)
[2024-12-01] MEDS ORDERED: DEXTROSE 50% 50 ML SYRINGE IV PRN (13:30)
[2024-12-01] MEDS ORDERED: GLUCOSE 10 TAB/TUBE PO PRN (13:30)
[2024-12-01] MEDS ORDERED: CARBOHYDRATES FOR HYPOGLYCEMIA PO PRN (13:30)
[2024-12-01] MEDS ORDERED: GLUCAGON FOR INJ 1 MG VIAL SQ PRN (13:30)
--- NOTE | 2024-12-01 13:47 | Anesthesiology Progress Note ---
Date of Service December 01, 2024 Anesthesia Post Procedure Vital Signs Vital Signs: Temp Pulse Resp BP Pulse Ox O2 Del Method O2 Flow Rate 12/01/24 13:30 86 16 144/77 H 93 Oxymask 4 12/01/24 13:20 85 17 150/75 H 94 Oxymask 4 12/01/24 13:10 89 12 132/73 97 Oxymask 10 12/01/24 13:00 88 12 131/76 95 Oxymask 10 12/01/24 12:53 36.7 C 87 12 115/68 95 Oxymask 10 12/01/24 06:11 36.4 C L 75 20 153/79 H 97 Room Air Pain Intensity Lower Back: Pain Intensity: 0 Transfer of Care Handoff Completed per policy Notes Mental Status: alert / awake / arousable and participated in evaluation Patient Amnestic to Procedure: Yes Nausea / Vomiting: adequately controlled Pain: adequately controlled Airway Patency, RR, SpO2: stable & adequate BP & HR: stable & adequate Hydration State: stable & adequate Anesthetic Complications: no major complications apparent and Pt Satisfied with anesthetic care
[2024-12-01] MEDS: LANTUS PER UNIT CHARGE SC ONE (15:20)
[2024-12-01] MEDS: hydroCHLOROthiazide 25 MG TAB PO SCH (16:39)
[2024-12-01] MEDS: DOCUSATE SODIUM/SENNA 50/8.6MG TAB PO SCH (20:02)
[2024-12-01] MEDS: INSULIN ASPART PER UNIT CHARGE SC SCH (21:10)
[2024-12-02] MEDS: ACETAMINOPHEN 500 MG TAB PO PRN (01:53)
[2024-12-02] MEDS: POLYETHYLENE (MIRALAX) 17 GM PACK PO SCH (05:13)
--- NOTE | 2024-12-02 08:08 | Orthopedic Progress Note ---
Date of Service December 02, 2024 Subjective Patient seen and examined, he notes no significant incisional pain. He notes that when he transitions from bed to mobilizing in the room today, he has not had the sharp sciatica type pain he is had before or his chronic low back pain. Neurovascular intact incision sites unremarkable. Plan: Patient is postop day 1 from lateral cage placement at L4-5 with posterior instrumentation, if he clears physical therapy and the hospitalist, he can discharge home today as he has only had Tylenol for pain and is doing quite well. The nurse will contact me later on as to the possible discharge of the patient is doing well. Review of Systems All systems reviewed & are unremarkable except as noted in HPI & below. Physical Exam . Results & Data Results & Data Laboratory Results . Diagnostic Findings . PG Care Time/CCT Total # of Minutes Spent Total Time Spent with Patient: Total time spent is greater than 50% in coordination of care (as documented) at patient's floor/unit and/or counseling patient: Coding Level of Care Code 54956 Post Operative Follow-Up
[2024-12-02] MEDS: INSULIN ASPART PER UNIT CHARGE SC SCH (08:36)
[2024-12-02] MEDS: LANTUS PER UNIT CHARGE SC ONE (08:36)
[2024-12-02] MEDS: TAMSULOSIN HCL 0.4 MG CAP PO SCH (08:37)
[2024-12-02] MEDS: allopurinoL 100 MG TAB PO SCH (08:37)
[2024-12-02] MEDS ORDERED: NON-FORMULARY MEDICATION (Vitamin K2 100 mcg capsule) PO SCH (09:00)
[2024-12-02] MEDS ORDERED: BLOOD SUGAR DIAGNOSTIC SCH (09:00)
[2024-12-02] MEDS ORDERED: metFORMIN HCL 500 MG TAB PO SCH (09:00)
--- NOTE | 2024-12-02 09:40 | Discharge Summary ---
Date of Service December 02, 2024 Admission HPI (Per Admitting) 10/23/24: Degenerative spondylolisthesis at L4-5 with severe central stenosis, neurogenic claudication symptoms. Plan: Today I reviewed the imaging studies with the patient went over these in detail. At this time I explained to the patient that with the amount of stenosis he has, we can still try some conservative measures but I think the might be limited in her ability to improve his symptoms due to the amount of stenosis he has. Specifically physical therapy was discussed along with pain management for trial of injections, but I do not think this will help with his numbness and lower extremity weakness. Beyond this I think the patient is appr opriate for surgical intervention, specifically I would recommend a posterior decompression along with instrumentation and fusion, this may or may not include a interbody cage. I discussed the technical details of how the surgery was performed including a discussion of the risk including but not exclusive to chance of infection, neurologic injury, healing of the arthrodesis, and expected improvements from the symptomatology, anesthesia risk. I did relay to the patient that he does have notable degenerative changes at L5-S1, but I do not think that needs to be addressed with a fusion as there is no stenosis or evidence of any instability. He is in agreement with moving ahead with the surgical plan and we will get him scheduled in the near future with follow-up. 11/13/24: Review of MRI images lumbar spine from [facility] from September 08, 2024, is my separate interpretation, this reveals L3-4 and above to be unremarkable going into the lower thoracic spine. L5-S1 shows loss of disc space height but there is no central or foraminal stenosis, just degenerative loss of height. L4-5 is where the main findings are with combination of high-grade central stenosis, only mild to moderate foraminal narrowing notable facet arthropathy with gapping and grade 1 anterolisthesis. Of note is that the facets are relatively oriented and the sagittal plane. 4 views of the lumbar spine taken for October 23 office reveal overall reasonable alignment on AP and lateral views, grade 1 anterolisthesis of L4 and L5 which shows some change with flexion extension, notable loss of disc base height at L5-S1 but no motion on flexion-extension. Impression: Degenerative spondylolisthesis at L4-5 with severe central stenosis, neurogenic claudication symptoms. Plan: Today I reviewed the imaging studies with the patient went over these in detail with both the patient and the who was not present on the previous visits. I reviewed the details of the surgery and how was performed, including the fusion decompression and other parts of the surgery, we also discussed the hospital and postoperative course and healing time afterwards. Answered a number questions that they had, we will be moving ahead with the surgery as stated with follow-up 2 weeks afterwards. Admission Exam (Per Admitting) Exam reveals the patient to be nontender to palpation lower lumbar spine. While standing and holding on the table he can ambulate on his toes tiptoe walking but with some limited difficulty. Heel walking that was unremarkable. While seated I could not elicit any near ankle reflexes, he had intact strength for EHL knee flexion extension strength. Straight leg raise was relatively negative. Principal Diagnosis Same as "Discharge Diagnosis" noted below under Discharge Instructions. Discharge Exam Neurovascular intact incision sites unremarkable. Discharge Data Consultations 12/01/24 12:46 Consult Hospitalist Routine Procedures Performed Operation Date: 12/01/24 07:30 Actual Procedures p L4-L5 Lateral Lumbar Interbody Fusion with Cage, Posterior Instrumentation, Spinal Cord Monitoring and CT Navigation(Left) - Carlos Cespedes MD Ordered Studies 12/01/24 06:00 CT lumbar spine wo con Routine [place] lumbar spine 2-3V Routine Hospital Course (1) Degenerative spondylolisthesis: (2) Lumbar stenosis with neurogenic claudication: (3) Low back pain radiating to both legs: (4) Back pain: (5) S/P lumbar spinal fusion: Plan On December 01, 2024 Hubert arrived at [facility] operating room and underwent L4-L5 Lateral Lumbar Interbody Fusion, Posterior instrumenation, Spinal Cord Monitoring and CT Navigation without complications. Patient had general anesthesia for the procedure. Patient was admitted to the general orthopedic floor in stable condition postoperatively for pain control and mobilization with physical therapy; they safely and properly performed the ADL tasks demonstrated by PT/OT and met all goals. Postoperative pain was controlled with oral pain medication alone. Normal return of bowel and bladder function. They worked with therapy, vital signs were acceptable, no need for transfusion, deemed safe for discharge. Patient was then discharged home in stable condition, with self-care and assistance from his . Patient will follow-up with Dr. Cespedes in the orthospine clinic in approximately 2 weeks, as scheduled, for postoperative care. PG Care Time/CCT Total # of Minutes Spent Total Time Spent with Patient: Total time spent is greater than 50% in coordination of care (as documented) at patient's floor/unit and/or counseling patient: Discharge Plan Discharge Items Patient Disposition: Home - Self-Care Reason For Visit: Low Back Pain Radiating to Both Legs, Lumbar Steno Discharge Diagnosis: s/p L4-L5 Lateral Lumbar Interbody Fusion Activity: Per Instructions section Lifting: No more than 10 pounds Bathing: May shower/bathe in 3 days Weightbearing: Full weightbearing Non-emergency contact: Surgeon Call non-emergency contact if: your pain is worsening, your temperature is above 101 and your wound has increased drainage Follow-up/Referrals: Carlos Cespedes MD [Surgeon] - (12/16/24 @ 11:30) Nick Farrar MD [Primary Care Provider] - Diet: Regular Addtl Attending Provider Instructions: May shower on 3rd day after surgery. You can wash the incision and surgical site with soap and water briefly and then blot dry with a clean towel/cloth. Cover with a new, sterile dry dressing. If unable to change your dressing, then leave hospital dressing intact and cover the area for showering. Do NOT soak incision. No strenuous activity, lifting, or exercise until further instructed. Use [id number] Tylenol as needed for pain relief -- follow directions on the bottle; limit Tylenol to 4,000 mg maximum in a 24-hour period. No use of NSAIDs (i.e ibuprofen/Advil/Motrin, naproxen/Aleve, etc.) for at least 3 months after surgery. Pending Studies at Discharge: No Stand-Alone Forms: [facility] [employer], Smoking Cessation Medications and DC Order Prescriptions: New oxycodone 5 mg tablet 5 mg PO Q6H PRN (Reason: pain) Qty: 12 0RF Continued (DME) Accu-Chek Guide test strips Strip See Rx Instructions .Route Qty: 100 0RF Rx Instructions: testing 1 time daily tirzepatide 15 mg/0.5 mL pen injector 15 mg subcut .weekly Qty: 2 11RF Patient Comments: takes on Mondays > last dose 11/23/24 hydrochlorothiazide 25 mg tablet 25 mg PO 3XWK Qty: 36 3RF Patient Comments: M/W/F fluconazole 200 mg tablet 200 mg PO QAM Qty: 30 3RF nystatin 500,000 unit tablet 500,000 unit PO TID atorvastatin 10 mg tablet 10 mg PO QAM Qty: 90 3RF Patient Comments: pt reports no longer taking per pcp order per pt 11/03/24 ammonium lactate 12 % cream 1 applic topical BID PRN (Reason: Rash) Patient Comments: apply to feet cholecalciferol (vitamin D3) 25 mcg (1,000 unit) capsule 25 mcg PO DAILY zinc 50 mg tablet 50 mg PO DAILY allopurinol 100 mg tablet 100 mg PO QAM ascorbic acid (vitamin C) 1,000 mg capsule 1 g PO DAILY vitamin K2 100 mcg capsule 100 mcg PO DAILY cyanocobalamin (vitamin B-12) [Vitamin B-12] 1,000 mcg Tablet 1,000 mcg PO QPM pantoprazole 40 mg tablet,delayed release (DR/EC) 40 mg PO QAM metformin 1,000 mg tablet 1,000 mg PO QAM tamsulosin 0.4 mg capsule 0.4 mg PO QAM Discharge Orders: Discharge Order (Routine); Ordered 12/03/24 Ordered By: Boo Mohan Admission Data Admit Date/Time: 12/01/24 12:46 Attending Provider: Carlos Cespedes Admit Provider: Carlos Cespedes Primary Care Provider: Nick Farrar
--- NOTE | 2024-12-02 16:12 | Operative Report ---
PG Post Operative Report Pre & Post Diagnosis Operation Date: 12/01/24 07:30 Pre-Op Diagnosis: (1) Lumbar stenosis with neurogenic claudication (2) Degenerative spondylolisthesis (3) Low back pain radiating to both legs (4) Back pain Post-Op Diagnosis: (1) Lumbar stenosis with neurogenic claudication (2) Degenerative spondylolisthesis (3) Low back pain radiating to both legs (4) Back pain I identified the patient and participated in the time-out.: Yes Procedure Operation Date: 12/01/24 07:30 Actual Procedures p L4-L5 Lateral Lumbar Interbody Fusion with Cage, Posterior Instrumentation, Spinal Cord Monitoring and CT Navigation(Left) - Carlos Cespedes MD Surgeon Carlos Cespedes MD Printing Estimator none Estimated Blood Loss 30 Findings Consistent with Post-Op Diagnosis Specimens none Description of Procedure 1. L4-5 right lateral interbody arthrodesis. (64340) 2. L4-5 intervertebral interbody cage, NuVasive cohere XLW 12 x 22 x 60 mm lordotic. (96914) 3. L4-5 posterior nonsegmental instrumentation, [employer]. (15330) 4. Stereotactic CT-guided navigation for instrumentation. (17396) Patient was taken the operating room and after adequate anesthesia was carefully positioned in left lateral decubitus position right side up for a right-sided approach to the L4-5 level for lateral interbody fusion. A preprepped was performed, I brought in fluoroscopy to mateus for the approximate location of the incision after the patient was secured to the table and there were routine adjustments were made for the lateral approach. Prep and drape was performed, I began the procedure with a transverse incision over the right iliac crest, from here I carefully dissected down through subcutaneous tissues and into the retroperitoneal area without any difficulty, was able to advance the initial dilator and guided to the midpoint of the L4-5 disc space, confirmed with fluoroscopic imaging and monitoring. From there I added the guidewire followed by the additional dilators and the access apparatus. The apparatus was adjusted in its position and checked multiple times with fluoroscopy and the monitoring. I began the procedure with lateral incision in the annulus followed by then a thorough discectomy at the L4-5 level with removal of disc and cartilage material from the endplates. I moved through different sized trials selecting the size as noted above as being the best fit to allow for some distraction and improvement anteriorly at the interspace. Fusion materials were obtained, these were placed into the disc space and then also within the cage itself and this was then tapped into position with excellent position on AP and lateral views. Final inspection was performed and final imaging, vancomycin powder was placed, then remove the access apparatus with no issues were noted. The operative site was closed with some 0 and 2-0 Vicryl suture keila for the skin sterile dressing was applied. Patient was repositioned and placed on the Edin top table, a preprepped was performed, and at that point I brought in the O-arm to evaluate the L4-[address]-guided navigation of instrumentation. A post pin was placed in the right posterior iliac crest region, the spin was performed, I used the navigated instruments to mateus the area for the insertion of the screws. For starting at L5 I used a combination of the pauma's foot followed by a small incision and then the awl followed by tap with insertion of 6.5 millimeter screws 50 mm in length into the L5 vertebral body without issue. The right side screw was able to start on the facet itself whereas the left screw had to be advanced from a position on the lateral aspect of the facet and just medial to the transverse process due to the shape of the pedicle. Monitoring is performed and these are all greater than 20. I moved to the L4 level where a similar process was performed with making small stab incisions followed by the all, gearshift probe and tap with insertion of same size screws. Once these were in place, another spin was performed confirming the accurate location of these screws no issues noted. The connecting rods were then inserted under fluoroscopic control, I used the rods once secured to the L5 vertebral screw and torqued down to provide some additional reduction of the spondylolisthesis. All setscrews were torqued down properly. Operative sites were irrigated, final images were obtained, vancomycin powder was placed along with local anesthetic and closure with 0 and 2-0 Vicryl sutures and keila for the skin in all locations. Sterile dressing was applied, the patient was taken to recovery room satisfactory condition. Monitoring for all screws was greater than 20. I attest to the content of the Intraoperative Record and any orders documented therein. Any exceptions are noted below.
[2024-12-02] MEDS: LANTUS PER UNIT CHARGE SC SCH (20:46)
[2024-12-03 07:21] VITALS: BP 144/73; RESP 16; TEMP 97.9; O2SAT 96
[2024-12-03] MEDS: LANTUS PER UNIT CHARGE SC SCH (08:57)
--- NOTE | 2024-12-03 10:30 | Orthopedic Progress Note ---
Date of Service December 03, 2024 Assessment & Plan (1) Back pain: (2) Low back pain radiating to both legs: (3) Lumbar stenosis with neurogenic claudication: (4) Degenerative spondylolisthesis: (5) S/P lumbar spinal fusion: Plan 79-year-old male POD#2 s/p L4-L5 Lateral Lumbar Interbody Fusion with Cage, Posterior Instrumentation, Spinal Cord Monitoring and CT Navigation, doing well overall. Pain is well-controlled. Medically stable. He is neurologically intact to bilateral lower extremities. Plan: 1. DVT prophylaxis w/ regular ambulation/mobilization, SCDs. 2. Continue PT/OT. WBAT and AAT. 3. Dressing should be changed prior to discharge today. Then, follow dressing instructions in the discharge section. 4. Continue diet as tolerated. 5. Disposition - plan to discharge to home later today with assistance of his . 6. F/u as scheduled on 12/16/24 @ 11:30 w/ Dr. Cespedes for first post-op visit. Subjective Patient is POD#2 s/p L4-L5 Lateral Lumbar Interbody Fusion with Cage, Posterior Instrumentation, Spinal Cord Monitoring and CT Navigation by Dr. Cespedes on 12/01/2024. Patient says his pain is well-controlled; he has only had to use Tylenol thus far. Denies CP, SOB, N/V, new L LE paresthesia. He does have some bilateral plantar foot and anterior ankle region numbness, but he attributes this to longstanding diabetic neuropathy. He no longer has any of the radicular component pain that he did preoperatively. Therapy has been going well and they are recommending that he can return home. He says he will be ready to go home later today. Review of Systems All systems reviewed & are unremarkable except as noted in HPI & below. Physical Exam GENERAL: Speech and cognition is intact. Mood and affect is appropriate. Does not appear in acute distress. Lying in bed and appears comfortable. HEAD: Normocephalic; atraumatic. CHEST: Regular chest respiration and excursion. NEURO: Awake, alert, and oriented x 3. BACK: Dressing intact to lumbar spine with overlying Medipore tape and only some minimal dried saturation to the superior aspect of the dressing. No evidence of erythema, active drainage, or abnormal warmth. LOWER EXTREMITIES: Sensation intact to light touch of the bilateral L2-S1 dermatomes; diminished to the bilateral plantar feet and anterior lower legs/ankles. Plantar/dorsiflexion intact bilaterally. NVI distally. R Hip flexion 5/5; knee extension 5/5; knee flexion 5/5; ankle dorsiflexion 5/5; ankle plantar flexion 5/5; EHL 5/5 L Hip flexion 5/5; knee extension 5/5; knee flexion 5/5; ankle dorsiflexion 5/5; ankle plantar flexion 5/5; EHL 5/5 Results & Data Results & Data Laboratory Results . Diagnostic Findings . PG Care Time/CCT Total # of Minutes Spent Total Time Spent with Patient: Total time spent is greater than 50% in coordination of care (as documented) at patient's floor/unit and/or counseling patient: Coding [place] [address] Post Operative Follow-Up Patient Type Established Medical Decision Making Straight Forward Diagnoses Back pain M54.9 Low back pain radiating to both legs M54.50; M79.604; M79.605 Lumbar stenosis with neurogenic claudication M48.062 Degenerative spondylolisthesis M43.10 S/P lumbar spinal fusion Z98.1
[2024-12-03 13:16] VITALS: PULSE 86
== END 2024-12-03 14:14 | disposition home or self-care (01) | DRG 451 ==
LOC: ASU 05:55 → 3E 12:46